=== PATIENT | female | born 1970 | race Caucasian/White ===

== ENCOUNTER → 2024-07-27 | Outpatient (CLI) | payer BC, SELFPAY ==
--- NOTE | 2024-07-27 16:00 | XR_ITS ---
Examination: MRI lumbar spine without contrast Date and time of exam: July 31, 2024 1630 hrs. Comparison 12/03/2018 Indications: Lower back pain radiating to the buttock regions 2 years Technique: Multiple MRI axial and sagittal sections lumbar spine. Sagittal T2-weighted images, TR 3500, TE 118 T1 weighted transverse sections, TR 688 T8.5, T2-weighted sagittal sections T1 weighted sagittal sections TR 621, TE 30 T2 axial sections, TR 4, 190, TE 84. Findings: Adequate alignment lumbar vertebral bodies on the lateral view Moderate disc narrowing L5-S1 No lumbar fracture Adequate marrow signal lumbar vertebral bodies Axial images demonstrate no focal lumbar disc protrusion No impingement upon the conus medullaris or cauda equina Impression: Adequate alignment lumbar vertebral bodies Moderate degenerative disc disease L5-S1 No acquired lumbar spinal stenosis
== END | disposition home or self-care (01) ==
PROVIDERS: PCP Family Medicine; Referring Provider Physician Assistant; Visit Provider Physician Assistant
DX: M51.379 Other intervertebral disc degeneration, lumbosacral region without mention of lumbar back pain or lower extremity pain (principal)
CPT/HCPCS: 72148